=== PATIENT | female | born 1980 | race American Indian/Alaskan Native ===

== ENCOUNTER 2018-10-19 09:41 | Outpatient (CLI) | payer OTHER, BC | END 2018-10-19 09:42 | disposition home or self-care (01) | LOC: C.RADH 09:41 ==

== ENCOUNTER 2018-10-20 09:06 | Outpatient (CLI) | payer OTHER | END 2018-10-20 09:07 | disposition home or self-care (01) | LOC: C.RADH 09:06 ==